=== PATIENT | female | born 1960 | race African-American/Black ===

== ENCOUNTER 2016-08-06 04:11 | Emergency (ER) | payer OTHER ==
[~2016-08-06] VITALS: Ht 160 cm; Wt 68.0 kg
[~2016-08-06 04:11] MED LIST: BACLOFEN20 MG PO; CELEXA 10 MG TA10 M1 PO; CYMBALTA30 MG PO; DOXYCYCLINE 10100 MG PO; ELAVIL; ENDOCET 5-3251 EACH PO; GABAPENTIN100 MG PO; HYDROCODON-ACE1 EAC7 PO; HYDROCODON-ACE1 EAC8 PO; HYDROXYCHLOROQ200 M1 PO; LIPITOR 20 MG T20 M1 PO; LYRICA 75 MG CA75 MG PO; MAXALT MLT ODT10 M1 PO; MELOXICAM7.5 MG PO; MOBIC15 MG PO; NEURONTIN 300300 M1 PO; NEXIUM 40 MG CA40 M1 PO; NYSTATIN 1100000 U/M SW&SWALLOW; PERCOCET 5-3251 EACH PO; PREDNISONE 20 M20 M1 PO; ROBAXIN 750 MG750 M1 PO; TRAMADOL 50 MG50 MG PO; VITAMIN D 5050000 I1 PO; XANAX 0.5 MG0.5 M1 PO
[2016-08-06 04:52] LABS: ABSOLUTE NEUTROPHILS 7.6 thou/uL (1.4-8.2); BASOPHILS 1.2 % (0.0-2.0); EOSINOPHILS 2.6 % (0.0-3.0); HEMATOCRIT 36.3 % (37.0-47.0); HEMOGLOBIN 12.3 gm/dL (12.0-15.0); LYMPHOCYTES 26.3 % (24.0-44.0); MCH 28.6 pg (26.0-34.0); MCHC 33.8 g/dL (28.0-37.0); MCV 84.6 fL (80.0-100.0); MONOCYTES 5.8 % (1.0-8.0); PLATELET COUNT 345 thou/uL (150-400); POLYS 64.1 % (36.0-66.0); RDW 14.1 % (10.5-14.5); WBC 11.9 thou/uL (4.0-11.0)
[2016-08-06 04:56] LABS: MANUAL DIFF NO
[2016-08-06 05:02] LABS: CALCIUM 8.8 mg/dL (8.5-10.1); CREATININE 0.9 mg/dL (0.6-1.0); POTASSIUM 4.1 mmol/L (3.5-5.1)
[2016-08-06 05:06] LABS: ALBUMIN 3.4 g/dL (3.4-5.0); TOTAL BILIRUBIN 0.2 mg/dL (<0.1-1.0); TOTAL PROTEIN 6.6 g/dL (6.4-8.2)
== END 2016-08-06 05:10 | disposition home or self-care (01) ==
LOC: ER 04:11
PROVIDERS: Emergency Medicine
DX: S80.11XA Contusion of right lower leg, initial encounter (principal); M32.9 Systemic lupus erythematosus, unspecified; F32.9 Major depressive disorder, single episode, unspecified; F41.9 Anxiety disorder, unspecified; K21.9 Gastro-esophageal reflux disease without esophagitis; Z98.890 Other specified postprocedural states; Z88.1 Allergy status to other antibiotic agents; F17.210 Nicotine dependence, cigarettes, uncomplicated; X58.XXXA Exposure to other specified factors, initial encounter; Y93.89 Activity, other specified; Y92.89 Other specified places as the place of occurrence of the external cause; Y99.8 Other external cause status

== ENCOUNTER 2019-04-06 07:28 | Emergency (ER) | payer OTHER ==
[~2019-04-06] VITALS: Ht 162.6 cm; Wt 72.6 kg
[2019-04-06] MEDS ORDERED: VERAPAMIL ER120 MG PO (07:35)
[2019-04-06 09:25] VITALS: BP 157/78
[2019-04-06] MEDS ORDERED: PROMETH-CODEIN 65 ML PO (09:27)
== END 2019-04-06 09:30 | disposition home or self-care (01) ==
LOC: ER 07:28
DX: J06.9 Acute upper respiratory infection, unspecified (principal); K21.9 Gastro-esophageal reflux disease without esophagitis; F32.9 Major depressive disorder, single episode, unspecified; F41.9 Anxiety disorder, unspecified; F17.210 Nicotine dependence, cigarettes, uncomplicated; Z88.1 Allergy status to other antibiotic agents

== ENCOUNTER 2020-09-05 05:13 | Emergency (ER) | payer BC ==
[~2020-09-05] VITALS: Ht 157.5 cm; Wt 72.6 kg
[~2020-09-05 05:13] MED LIST changes: +PROMETH-CODEIN 65 ML PO; +VERAPAMIL ER120 MG PO
[2020-09-05 06:31] LABS: URINE BILIRUBIN NEGATIVE (Negative); URINE BLOOD 1+ (Negative); URINE CLARITY CLEAR; URINE COLOR YELLOW; URINE GLUCOSE-RANDOM* NEGATIVE (Negative); URINE KETONES NEGATIVE (Negative); URINE NITRITE-REFLEX NEGATIVE (Negative); URINE PROTEIN (DIPSTICK) TRACE (Negative); URINE SPECIFIC GRAVITY 1.025 (1.005-1.035)
[2020-09-05 06:32] LABS: URINE LEUKOCYTES-REFLEX 1+ (Negative)
[2020-09-05 06:42] LABS: CASTS None Seen /LPF (None Seen); MUCUS 4-6 Moderate strn/LPF (None Seen); SQUAMOUS 4-10 Moderate /LPF (0-3)
[2020-09-05 06:43] LABS: BACTERIA-REFLEX 1-9 Few /HPF (None Seen); CRYSTALS None Seen /LPF (None Seen); URINE RBC 1-2 Rare /HPF (NONE SEEN); URINE WBC-REFLEX 0-5 Rare /HPF (0-5)
[2020-09-05] MEDS ORDERED: TYLENOL325 M1 PO (07:07)
[2020-09-05] MEDS ORDERED: DOXYCYCLINE 10100 MG PO (07:07)
[2020-09-05] MEDS ORDERED: TESSALON PERLE100 MG PO (07:07)
[2020-09-05 07:08] VITALS: BP 138/77
== END 2020-09-05 07:08 | disposition home or self-care (01) ==
LOC: ER 05:13
PROVIDERS: Emergency Medicine
DX: J18.9 Pneumonia, unspecified organism (principal); Z20.822 Contact with and (suspected) exposure to COVID-19; G43.909 Migraine, unspecified, not intractable, without status migrainosus; F17.210 Nicotine dependence, cigarettes, uncomplicated; K21.9 Gastro-esophageal reflux disease without esophagitis; Z90.89 Acquired absence of other organs; Z88.1 Allergy status to other antibiotic agents; Z79.899 Other long term (current) drug therapy

== ENCOUNTER 2021-02-19 19:46 | Emergency (ER) | payer OTHER ==
[~2021-02-19] VITALS: Ht 160 cm; Wt 73.5 kg
[~2021-02-19 19:46] MED LIST changes: +AMITRIPTYLINE150 MG PO; -ELAVIL; +TESSALON PERLE100 MG PO; +TYLENOL325 M1 PO
[2021-02-19] MEDS ORDERED: METHYLPREDNISOLO4 M1 PO (20:08)
[2021-02-19] MEDS ORDERED: HYDROCODON-ACE1 EAC7 PO (20:09)
[2021-02-19] MEDS ORDERED: BENLYSTA200 MG/1 M SUBQ (20:10)
[2021-02-19] MEDS ORDERED: PROAIR HFA8.5 GM INH (20:10)
[2021-02-19] MEDS ORDERED: ALPRAZOLAM1 MG PO (20:10)
[2021-02-19] MEDS ORDERED: DONEPEZIL HCL 55 M1 PO (20:11)
[2021-02-19] MEDS ORDERED: TOPIRAMATE50 MG PO (20:11)
[2021-02-19] MEDS ORDERED: SYMBICORT80 MCG/4.1 INH (20:11)
[2021-02-19] MEDS ORDERED: HYDROCHLOROTHIA25 M1 PO (20:12)
[2021-02-19] MEDS ORDERED: VERAPAMIL HCL240 MG PO (20:12)
[2021-02-19] MEDS ORDERED: CLEOCIN HCL300 MG PO (20:29)
[2021-02-19 20:42] VITALS: BP 153/94
== END 2021-02-19 20:41 | disposition home or self-care (01) ==
LOC: ER 19:46
DX: S02.5XXG Fracture of tooth (traumatic), subsequent encounter for fracture with delayed healing (principal); G43.909 Migraine, unspecified, not intractable, without status migrainosus; F32.9 Major depressive disorder, single episode, unspecified; F41.9 Anxiety disorder, unspecified; K21.9 Gastro-esophageal reflux disease without esophagitis; F17.210 Nicotine dependence, cigarettes, uncomplicated; Z79.899 Other long term (current) drug therapy; Z88.0 Allergy status to penicillin; Z90.89 Acquired absence of other organs; X58.XXXD Exposure to other specified factors, subsequent encounter